=== PATIENT | female | born 1975 | race Caucasian/White ===

== ENCOUNTER 2017-07-18 10:46 | Emergency (ER) | payer BC ==
[~2017-07-18] VITALS: Ht 177.8 cm; Wt 85.8 kg
[~2017-07-18 10:46] MED LIST: ALLEGRA ALLERG180 MG PO; CELEXA40 MG; CONCERTA54 MG PO; DAILY VALUE1 EACH PO; FLONASE16 G1 BOTH NARES; LAMICTAL100 MG PO; MEGACE20 MG PO; METH54T PO; PRILOSEC OTC20 MG PO; PRINIVIL20 MG PO; PROZAC20 MG PO; VIMPAT200 MG PO; XANAX0.25 MG PO
[2017-07-18 11:18] LABS: HEMATOCRIT 42.6 % (36.0-46.0); MCH 28.2 PG (29.0-34.0); MCHC 32.9 G/DL (30.0-36.0); MCV 85.7 FL (83-99); PLATELET COUNT 282 K/uL (156-360); RBC DIS.WIDTH-CV 12.6 % (11.8-14.6); RBC DIS.WIDTH-SD 39.5 % (39-53); RED BLOOD COUNT 4.97 M/uL (3.80-5.20); WHITE BLOOD COUNT 9.1 K/uL (4.1-10.2)
[2017-07-18 11:48] LABS: AMPHETAMINE NEGATIVE (500 ng/mL); BARBITURATES NEGATIVE (200 ng/mL); BENZODIAZEPINES PRESUMPTIVE POSITIVE (150 ng/mL); BUPRENORPHINE NEGATIVE (10 ng/mL); COCAINE NEGATIVE (150 ng/mL); METHADONE NEGATIVE (200 ng/mL); METHAMPHETAMINE NEGATIVE (500 ng/mL); OPIATES (MORPHINE) NEGATIVE (100 ng/mL); OXYCODONE NEGATIVE (100 ng/mL); PHENCYCLIDINE NEGATIVE (25 ng/mL); PROPOXYPHENE NEGATIVE (300 ng/mL); THC CANNABINOIDS NEGATIVE (50 ng/mL); TRICYCLIC ANTIDEPRESSANTS NEGATIVE (300 ng/mL)
[2017-07-18 12:33] LABS: BENZODIAZEPINES, URINE SCREEN POSITIVE (200 ng/mL)
[2017-07-18 12:41] LABS: CHLORIDE 104 mEq/L (99-109); POTASSIUM 4.1 mEq/L (3.7-5.4); SODIUM 140 mEq/L (136-147)
[2017-07-18 12:42] LABS: GLUCOSE 82 mg/dL (70-99)
[2017-07-18 12:46] LABS: CREATININE 0.8 mg/dL (0.6-1.3); GFR ESTIMATE (CALCULATED) > 59 mL/min/; SERUM ETHYL ALCOHOL < 10 mg/dL
[2017-07-18 12:48] LABS: UREA NITROGEN (BUN) 9 mg/dL (9-23)
[2017-07-18 12:49] LABS: SALICYLATE < 5.0 MG/DL (15-30)
[2017-07-18 12:50] LABS: ACETAMINOPHEN (TYLENOL) < 10 mcg/mL (10-30)
[2017-07-18 12:56] LABS: QUANTITATIVE HCG < 4.0 MIU/ML
[2017-07-18 20:30] VITALS: BP 119/90
== END 2017-07-19 00:53 ==
LOC: EME 10:46
DX: F32.9 Major depressive disorder, single episode, unspecified (principal); T42.4X1A Poisoning by benzodiazepines, accidental (unintentional), initial encounter; F84.0 Autistic disorder; F84.5 Asperger's syndrome; L51.1 Stevens-Johnson syndrome; F31.9 Bipolar disorder, unspecified; F13.20 Sedative, hypnotic or anxiolytic dependence, uncomplicated; Z88.0 Allergy status to penicillin; Z88.8 Allergy status to other drugs, medicaments and biological substances
CPT/HCPCS: 80048; 84702; 84999; 85027; 90837; 99281; 99285; G0480

== ENCOUNTER 2017-08-23 14:42 | Emergency (ER) | payer BC ==
[~2017-08-23] VITALS: Ht 177.8 cm; Wt 93.9 kg
[2017-08-23 15:16] LABS: BASOPHIL (%) 0.8 % (0-1); BASOPHIL COUNT 0.1 K/uL (0-0.1); EOSINOPHIL (%) 0.7 % (0-5); EOSINOPHIL COUNT 0.1 K/uL (0-0.3); HEMATOCRIT 39.9 % (36.0-46.0); HEMOGLOBIN 13.1 G/DL (11.9-15.5); IMMATURE GRANULOCYTE (%) 0.4 % (0.0-0.7); LYMPHOCYTE (%) 19.7 % (15-42); MCH 27.5 PG (29.0-34.0); MCHC 32.8 G/DL (30.0-36.0); MCV 83.8 FL (83-99); MONOCYTE (%) 9.4 % (3-12); PLATELET COUNT 333 K/uL (156-360); RBC DIS.WIDTH-CV 13.2 % (11.8-14.6); RBC DIS.WIDTH-SD 40.9 % (39-53); RED BLOOD COUNT 4.76 M/uL (3.80-5.20); WHITE BLOOD COUNT 10.1 K/uL (4.1-10.2)
[2017-08-23 15:24] LABS: CHLORIDE 103 mEq/L (99-109); SODIUM 139 mEq/L (136-147)
[2017-08-23 15:26] LABS: GLUCOSE 97 mg/dL (70-99)
[2017-08-23 15:30] LABS: CREATININE 0.8 mg/dL (0.6-1.3); GFR ESTIMATE (CALCULATED) > 59 mL/min/
[2017-08-23 15:31] LABS: UREA NITROGEN (BUN) 14 mg/dL (9-23)
[2017-08-23 15:44] LABS: VALPROIC ACID (DEPAKOTE) 70.1 MCG/ML (50-100)
[2017-08-23 15:59] VITALS: BP 150/98
== END 2017-08-23 16:06 | disposition home or self-care (01) ==
LOC: EME 14:42
PROVIDERS: Nurse Practitioner Family
DX: R25.1 Tremor, unspecified (principal); R11.0 Nausea; T42.6X5A Adverse effect of other antiepileptic and sedative-hypnotic drugs, initial encounter; F84.5 Asperger's syndrome; Z88.8 Allergy status to other drugs, medicaments and biological substances; Z88.0 Allergy status to penicillin
CPT/HCPCS: 80048; 80164; 85025; 99281; 99284